=== PATIENT | female | born 1950 | race Caucasian/White ===

== ENCOUNTER 2023-07-09 14:04 | Emergency (ER) | payer MEDICARE, BC, SELFPAY ==
[2023-07-09 14:06] VITALS: BP 118/67; PULSE 74; RESP 18; TEMP 37.1; O2SAT 96; BMI 31.2
--- NOTE | 2023-07-09 14:24 | ED.GENADULT ---
HPI - General Adult General Chief complaint: Urogenital Problems, Female Stated complaint: possible UTI Time Seen by Provider: 07/09/23 14:19 History of Present Illness HPI narrative: This 73-year-old female comes in reporting 2 days of dysuria symptoms that are typical for urinary tract infection according to her previous report. She states that about 6 months ago she had similar symptoms as this. She reports increased frequency and pain with voiding. She has not had any fevers or flank pain. Related Data Home Medications ?Medication ?Instructions ?Recorded ?Confirmed alendronate 70 mg tablet 70 mg PO 07/09/23 clobetasol 0.05 % topical ointment topical DAILY 07/09/23 clopidogrel 75 mg tablet 75 mg PO DAILY 07/09/23 07/09/23 lisinopril 10 mg tablet 10 mg PO DAILY 07/09/23 07/09/23 metoprolol succinate 25 mg mg PO 07/09/23 tablet,extended release 24 hr rosuvastatin 5 mg tablet 5 mg PO DAILY 07/09/23 07/09/23 trazodone 100 mg tablet PO 07/09/23 valacyclovir 1 gram tablet 1,000 mg PO 3XD 07/09/23 07/09/23 venlafaxine 150 mg 150 mg PO DAILY 07/09/23 07/09/23 capsule,extended release 24 hr Previous Rx's ?Medication ?Instructions ?Recorded cephalexin 500 mg capsule 500 mg PO TID 5 days #15 caps 07/09/23 Allergies Allergy/AdvReac Type Severity Reaction Status Date / Time No Known Drug Allergies Allergy Verified 07/09/23 14:10 Review of Systems Status of ROS: Reports: 10 or more systems reviewed and unremarkable except as noted in History and below Narrative: Constitutional: No fevers, no weight gain or loss. Eyes: No discharge. No vision changes. HENT: No congestion, no sore throat, no ear pain. Cardiovascular: No chest pain, no palpitations. Respiratory: No shortness of breath, no wheezes, no cough. Gastrointestinal: No abdominal pain, no vomiting, no diarrhea. Genitourinary: Pain with voiding and increased frequency of voiding. Musculoskeletal: Normal range of motion. Skin: No rashes, no pruritis. Neurological: No dizziness, weakness, sensory change, speech change. Endo/Heme/Allergies: No bruising or bleeding. No polydipsia. Pysch: no suicidality, no anxiety, no insomnia. All other systems reviewed and are negative. PFSH PFSH Social History Smoking Status: Former smoker Do you use any of these nicotine containing products: None Second hand tobacco smoke exposure: No How often do you have a drink containing alcohol: never AUDIT-C Alcohol total score: 0 Non-prescribed substance use: denies use Exam Narrative: Exam Narrative: Constitutional: Well-developed, well-nourished, no acute distress. HEENT: Normocephalic, atraumatic. Neck: Normal range of motion. Nontender. Supple. Heart: Intact distal pulses. Lungs: No chest discomfort. No wheezes, rhonchi, or rales. Abdomen: Nontender. Back: Normal range of motion. Extremities: Normal range of motion. No injury. Skin: Intact. No rash. Warm. No erythema or pallor. Neurologic: No altered sensation. No weakness. Alert and oriented. Psychiatric: No suicidality. No anxiety or depression. No insomnia. Nursing notes and vitals signs are reviewed. Const: Vital Signs, click to edit/add: Vital Signs - 24 hr 07/09/23 14:06 Temperature 98.8 F Pulse Rate [Pulse Oximeter] 74 Respiratory Rate 18 Blood Pressure [Ri ght Upper Arm] 118/67 Pulse Oximetry 96 Oxygen Delivery Me thod Room Air Course Vital Signs Vital signs: Initial Vital Signs Temperature 98.8 F 07/09/23 14:06 Temperature Source Temporal Artery Scan 07/09/23 14:06 Pulse Rate 74 07/09/23 14:06 Respiratory Rate 18 07/09/23 14:06 Blood Pressure 118/67 07/09/23 14:06 Blood Pressure Mean 84 07/09/23 14:06 Blood Pressure Position Sitting 07/09/23 14:06 Pulse Oximetry 96 07/09/23 14:06 Oxygen Delivery Method Room Air 07/09/23 14:06 Vital Signs Temperature 98.8 F 07/09/23 14:06 Pulse Rate 74 07/09/23 14:06 Respiratory Rate 18 07/09/23 14:06 Blood Pressure 118/67 07/09/23 14:06 Pulse Oximetry 96 07/09/23 14:06 Oxygen Delivery Method Room Air 07/09/23 14:06 Temperature 98.8 F 07/09/23 14:06 Pulse Rate 74 07/09/23 14:06 Respiratory Rate 18 07/09/23 14:06 Blood Pressure 118/67 07/09/23 14:06 Pulse Oximetry 96 07/09/23 14:06 Oxygen Delivery Method Room Air 07/09/23 14:06 Medical Decision Making MDM Narrative Medical decision making narrative: Urinalysis is obtained and shows obvious signs of infection. The patient has normal vital signs and is okay to be discharged home. A prescription for Keflex is provided. Lab Data Labs: Lab Results 07/09/23 Range/Units 14:15 Urine Color Dark yellow (Yellow) Urine Appearance Slightly Cloudy A (Clear) Urine pH 6.0 (5.0-8.5) Ur Specific [place] >= 1.030 (1.000-1.030) Urine Protein 2+ A (Negative) Urine Glucose (UA) Negative (Negative) Urine Ketones Negative (Negative) Urine Blood 3+ A (Negative) Urine Nitrite Negative (Negative) Urine Bilirubin Negative (Negative) Urine Urobilinogen 0.2 (0.2-1.0) Ur Leukocyte Esterase 1+ A (Negative) Urine RBC >100 A (0-2) Urine WBC >100 A (0-5) Ur Squamous Epith Cells Few (None-Few) Urine Bacteria Many A (None) Discharge Plan Discharge Clinical Impression: Urinary tract infection Patient Disposition: Home, Self-Care Condition: Stable Additional Instructions: Take medication as prescribed. Drink plenty of fluids. Follow up with MD return if worsening. Prescriptions: New cephalexin 500 mg capsule 500 mg PO TID 5 Days Qty: 15 0RF No Action valacyclovir 1 gram tablet 1,000 mg PO 3XD alendronate 70 mg tablet 70 mg PO venlafaxine 150 mg capsule,extended release 24hr 150 mg PO DAILY clopidogrel 75 mg tablet 75 mg PO DAILY trazodone 100 mg tablet PO lisinopril 10 mg tablet 10 mg PO DAILY metoprolol succinate 25 mg tablet extended release 24 hr PO clobetasol 0.05 % ointment topical DAILY rosuvastatin 5 mg tablet 5 mg PO DAILY Follow Up/Referrals: Xiomy Conway DO [Primary Care Provider] - Stand Alone [facility]: [facility] Inst[facility]
[2023-07-09 14:34] LABS: Appearance Urine Slightly Cloudy (Clear); Bilirubin Urine Negative (Negative); Blood Urine 3+ (Negative); Color Urine Dark yellow (Yellow); Glucose Urine Negative (Negative); Ketones Urine Negative (Negative); Leukocyte Esterase Urine 1+ (Negative); Nitrite Urine Negative (Negative); Protein Urine 2+ (Negative); Specific Gravity Urine >= 1.030 (1.000-1.030); Urobilinogen Urine 0.2 (0.2-1.0)
[2023-07-09 15:04] LABS: RBC Urine >100 (0-2); WBC Urine >100 (0-5)
[2023-07-09 15:05] LABS: Bacteria Urine Many; Squamous Epithelial Cell Urine Few (None-Few)
== END 2023-07-09 15:15 | disposition home or self-care (01) ==
PROVIDERS: Emergency Provider Emergency Medicine Emergency Medical Services; PCP Family Medicine
DX: N39.0 Urinary tract infection, site not specified (principal)
CPT/HCPCS: 81001; 87086; 99283; 99284